=== PATIENT | male | born 1990 | race Caucasian/White ===

== ENCOUNTER 2024-03-19 16:18 | Emergency (ER) | payer OTHER ==
[~2024-03-19] VITALS: Ht 175.3 cm; Wt 121.0 kg
[2024-03-19] VITALS (14 sets, daily range): BP systolic 101–130; BP diastolic 71–91
[~2024-03-19 16:18] MED LIST: DOXY-CAPS100 MG PO; MOTRIN800 MG PO; OFLOXACIN0.3 % OD; SILVADENE1 % EX; TRAMADOL HCL50 MG PO
[2024-03-19] MEDS ORDERED: ASPIRIN 81 MG/TAB PO ONE (16:40)
[2024-03-19 16:53] LABS: BASO% 0.2 % (0-3); EOS% 4.4 % (0-8); HEMOGLOBIN 14.9 g/dl (14.0-18.0); IMMATURE GRANULOCYTES 0.2 % (0.0-5.0); LYMPH% 26.4 % (15-41); MEAN CELL VOLUME 83.2 fL CALC (80.0-100.0); MEAN CORPUSCULAR HGB 28.2 pG CALC (26.0-32.0); MEAN CORPUSCULAR HGB CONC 33.9 g/dL CAL (32.0-36.0); MONO% 5.9 % (2-13); NEUT# 9.09 thou/uL (1.82-7.42); NEUT% 62.9 % (42-76); RED BLOOD COUNT 5.29 mill/uL (4.70-6.10); RED CELL DISTRI WIDTH 12.7 % (11.5-15.5)
[2024-03-19 17:10] LABS: ALBUMIN 4.6 g/dL (3.2-5.0); ALKALINE PHOSPHATASE 59 u/l (38-126); ANION GAP 15 (6-22 (CALC)); BILIRUBIN, TOTAL 0.6 mg/dL (0.2-1.3); BUN 10 mg/dL (9-20); BUN/CREATININE RATIO 11 (12-20 (CALC)); CARBON DIOXIDE 25 mmol/l (22-30); CHLORIDE 102 mmol/l (95-108); CREATININE 0.9 mg/dL (0.7-1.3); ESTIMATED GFR 117 ML/MIN (>=90 (CALC)); POTASSIUM 3.4 mmol/l (3.5-5.1); SGOT/AST 23 u/l (17-59); SODIUM 139 mmol/l (137-146)
== END 2024-03-19 20:35 | disposition home or self-care (01) | DRG 313 ==
LOC: ED 16:18
PROVIDERS: Family Medicine
DX: R07.9 Chest pain, unspecified (principal); F17.210 Nicotine dependence, cigarettes, uncomplicated